=== PATIENT | female | born 1975 | race Two or more races ===

== ENCOUNTER 2020-02-16 07:55 | Emergency (ER) | payer BC ==
[~2020-02-16] VITALS: Ht 167.6 cm; Wt 68.0 kg
[2020-02-16 08:01] VITALS: BP 116/86
--- NOTE | 2020-02-16 08:05 | NUR ---
AT BEDSIDE FOR EVAL.
[2020-02-16] MEDS ORDERED: diphenhydrAMINE HCL 25 MG CAPSULE ONE (08:10)
--- NOTE | 2020-02-16 08:10 | NUR ---
Patient discharged to home in stable condition. Written and verbal after care instructions given. Patient verbalizes understanding of instruction.
[2020-02-16] MEDS ORDERED: diphenhydrAMINE HCL 25 MG CAPSULE PO ONE (08:30)
== END 2020-02-16 08:11 | disposition home or self-care (01) ==
LOC: ER 08:03
DX: T63.441A Toxic effect of venom of bees, accidental (unintentional), initial encounter (principal); Y92.89 Other specified places as the place of occurrence of the external cause
CPT/HCPCS: 99282; Q0163

== ENCOUNTER 2021-01-08 21:58 | Emergency (ER) | payer BC ==
[~2021-01-08] VITALS: Ht 167.6 cm; Wt 79.8 kg
[2021-01-08] MEDS ORDERED: PROPOFOL 20 ML IV ONE (22:11)
--- NOTE | 2021-01-08 22:13 | NUR ---
xray at bedside
[2021-01-08] MEDS ORDERED: FENTANYL PF 100MCG/2ML AMPUL ONE (22:16)
--- NOTE | 2021-01-08 22:26 | NUR ---
PROPOFOL 80MG IVP X 1
[2021-01-08 22:27] LABS: BASOPHILS % (AUTO) 0.5 % (0.0-2.0); EOSINOPHILS % (AUTO) 2.7 % (0.0-6.0); HEMATOCRIT 41 % (33-45); HEMOGLOBIN 13.8 g/dL (11.5-14.8); LYMPHOCYTES # (AUTO) 2.4 K/uL (0.8-4.8); MEAN CORPUSCULAR HGB CONC 34 g/dl (31.0-36.0); MEAN CORPUSCULAR VOLUME 92 fL (82-100); MONOCYTES # (AUTO) 0.6 K/uL (0.1-1.30); MONOCYTES % (AUTO) 7.8 % (2.0-12.0); NEUTROPHILS # (AUTO) 4.2 K/uL (1.8-8.9); PLATELET COUNT (AUTO) 165 K/uL (150-450); RED BLOOD CELL COUNT(AUTO) 4.39 MIL/uL (4.0-5.2); WHITE BLOOD COUNT (AUTO) 7.4 K/uL (4.3-11.0)
--- NOTE | 2021-01-08 22:27 | NUR ---
DR. TA SUCCESSFULLY PERFORMED CLOSED REDUCTION.
--- NOTE | 2021-01-08 22:29 | NUR ---
APPLIED LEFT KNEE IMMOBILIZER
[2021-01-08] MEDS ORDERED: FENTANYL PF 100MCG/2ML AMPUL IV ONE (22:30)
--- NOTE | 2021-01-08 22:34 | NUR ---
xray at bedside
--- NOTE | 2021-01-08 22:43 | NUR ---
PATIENT IS AWAKE
[2021-01-08 22:46] LABS: CALCIUM, SERUM 7.9 mg/dL (8.5-10.1); POTASSIUM 3.8 mmol/L (3.5-5.1)
[2021-01-08] MEDS ORDERED: HYDR-4275 PO (23:16)
[2021-01-08] MEDS ORDERED: PROPOFOL 200 MG/20 ML VIAL IV ONE (23:30)
--- NOTE | 2021-01-08 23:44 | NUR ---
IV removed. Catheter intact and site benign. Pressure and 4x4 applied to site. No bleeding noted.
--- NOTE | 2021-01-08 23:44 | NUR ---
Patient discharged to home in stable condition. Written and verbal after care instructions given. Patient verbalizes understanding of instruction.
[2021-01-09 02:27] VITALS: BP 127/76
== END 2021-01-08 23:52 | disposition home or self-care (01) ==
LOC: ER 22:01
DX: S83.015A Lateral dislocation of left patella, initial encounter (principal); Z98.890 Other specified postprocedural states; W10.8XXA Fall (on) (from) other stairs and steps, initial encounter; Y93.89 Activity, other specified; Y92.89 Other specified places as the place of occurrence of the external cause; Y99.8 Other external cause status
CPT/HCPCS: 27560; 73564 ×2; 80048; 85025; 99152; 99285; J2704; J3010; 36415; G0500